=== PATIENT | female | born 1990 | race Caucasian/White ===

== ENCOUNTER 2016-06-17 14:53 | Emergency (ER) | payer BC, OTHER ==
[2016-06-17 14:58] VITALS: BP 142/79
[2016-06-17] MEDS ORDERED: Acetaminophen TAB* 325 MG PO ONE (15:40)
--- NOTE | 2016-06-17 16:31 | ED ---
Leonora Danielle Claudia, scribed for Christian Erickson MD on 06/17/16 at 1535 . Back Pain - HPI Summary HPI Summary: 25 year old female presents to the ED with left paraspinal back pain. Pt works a [employer] and was moving a pt and felt a pain to her left paraspinal back in the upper lumbar region she notes this occurred [id number] today. She notes pain 7/ 10. Pt denies any incontinence, NVD, abd pain, fever chills, numbness/tingling in LE. Pt notes aggravating factors of movement and no alleviating factors. - History of Current Complaint Chief Complaint: EDGeneral Stated Complaint: BACK INJURY Time Seen by Provider: 06/17/16 15:17 Hx Obtained From: Patient Hx Last Menstrual Period: started Dec 30 Onset/Duration: Sudden Onset Onset/Duration: Started Minutes Ago - 1400, Still Present Timing: Constant Back Pain Location: Is Discrete @ - left paraspinal upper lumbar region Pain Intensity: 7 Pain Scale Used: 0-10 Numeric Aggravating Symptom(s): Movement Associated Signs And Symptoms: Negative: Fever, Weakness, Numbness, Tingling, Bladder Incontinence, Bowel Incontinence - Allergies/Home Medications Allergies/Adverse Reactions: Allergies Allergy/AdvReac Type Severity Reaction Status Date / Time Ibuprofen AdvReac Intermediate worsens Verified 08/17/13 20:11 migraines PMH/Surg Hx/FS Hx/Imm Hx Previously Healthy: Yes Endocrine/Hematology History: Denies: Hx Diabetes Cardiovascular History: Denies: Hx Myocardial Infarction Infectious Disease History: Denies: Traveled Outside the [place] in Last 30 Days - Family History Known Family History: Positive: Cardiac Disease, Hypertension, Diabetes - Social History Occupation: Employed Full-time - [employer] [place] With Family Alcohol Use: Rare Substance Use Type: Reports: Marijuana Hx Tobacco Use: No Review of Systems Constitutional: Negative Negative: Fever, Chills Eyes: Negative ENT: Negative Cardiovascular: Negative Respiratory: Negative Gastrointestinal: Negative Negative: Abdominal Pain, Diarrhea, Nausea Genitourinary: Negative Negative: incontinence Positive: Other - back pain Skin: Negative Neurological: Negative Negative: Paresthesia, Numbness Psychological: Normal All Other Systems Reviewed And Are Negative: Yes Physical Exam Triage Information Reviewed: Yes Vital Signs On Initial Exam: Initial Vitals Temp Pulse Resp BP Pulse Ox 97.9 F 83 20 142/79 100 06/17/16 14:55 06/17/16 14:55 06/17/16 14:55 06/17/16 14:55 06/17/16 14:55 Vital Signs Reviewed: Yes Appearance: Positive: Well-Appearing. Negative: No Pain Distress - mild pain distress Skin: Positive: Warm, Skin Color Reflects Adequate Perfusion, Dry Head/Face: Positive: Normal Head/Face Inspection Eyes: Positive: EOMI, LUX ENT: Positive: Normal ENT inspection Neck: Positive: Supple, Nontender Respiratory/Lung Sounds: Positive: Clear to Auscultation, Breath Sounds Present Cardiovascular: Positive: RRR Abdomen Description: Positive: Nontender, Soft Musculoskeletal: Positive: Normal, Strength/ROM Intact, Other - left paraspinal tenderness in upper lumbar region. Patellar reflex 2+ bilaterally and strength 5 /5 LE. Neurological: Positive: Normal, Sensory/Motor Intact, Alert, Oriented to Person Place, Time Psychiatric: Positive: Affect/Mood Appropriate Diagnostics - Vital Signs Vital Signs Temp Pulse Resp BP Pulse Ox 06/17/16 14:55 97.9 F 83 20 142/79 100 - Laboratory Lab Statement: Any lab studies that have been ordered have been reviewed, and results considered in the medical decision making process. Back Pain Course/Dx - Course Course Of Treatment: NO CRITICAL CARE TIME. Assessment/Plan: RX NORCO/FLEXERIL. OUT OF WORK 06/18/16. F/U PMD. [facility]. - Diagnoses Provider Diagnoses: Low back pain Discharge - Discharge Plan Condition: Stable Disposition: HOME Prescriptions: Cyclobenzaprine TAB* [Flexeril 10 MG TAB*] 10 mg PO TID PRN #10 tab PRN Reason: Pain HYDROcodone/ACETAMIN 5-325 MG* [[place] 5-325 TAB*] 1 tab PO Q4H PRN #20 tab MDD 6 PRN Reason: Pain Patient Education Materials: Low Back Strain (ED), Acute Low Back Pain (ED), Lower Back Exercises (ED) Forms: *Work Release Referrals: Henry THOMAS,Blake Perla [Primary Care Provider] - Additional Instructions: FOLLOW UP WITH YOUR DOCTOR. RETURN TO THE EMERGENCY DEPARTMENT FOR ANY WORSENING OF YOUR CONDITION; WEAKNESS , NUMBNESS, DIFFICULTY CONTROLLING BOWEL OR BLADDER OR QUESTIONS OR CONCERNS. The documentation as recorded by the Leonora candelaria Claudia accurately reflects the service I personally performed and the decisions made by me, Christian Erickson MD.
== END 2016-06-17 15:47 | disposition home or self-care (01) ==
LOC: ED 14:53
DX: M54.5 Low back pain (principal); F12.90 Cannabis use, unspecified, uncomplicated; Z88.6 Allergy status to analgesic agent
CPT/HCPCS: 99281; A9270-GY

== ENCOUNTER 2016-10-02 11:03 | Emergency (ER) | payer OTHER ==
[2016-10-02] MEDS ORDERED: Tetan/Diph/Pertus SYR(Tdap)* 0.5 ML SYR(BOOSTRIX) use SYR IM ONE (12:05)
[2016-10-02 14:27] VITALS: BP 110/59
--- NOTE | 2016-10-02 14:39 | ED ---
- HPI Summary HPI Summary: Patient presents to ED 30 minutes s/p exposure of body fluids to the right eye. 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 Pt states she was emptying a commode that wasn't properly installed and the bucket dropped to the floor splashing urine upwards into her eyes. Pt utilized the emergency eye wash station immediately as instructed. 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 She notes to right eye itching. She denies any other symptoms. It is unknown of the patients HIV/Hep status and patient has been discharged and now is unavailable for testing. She is otherwise healthy, takes no medications and denies allergies. - History of Current Complaint Chief Complaint: EDExposureBodyFluid Stated Complaint: EXPOSURE/URINE IN RT EYE Time Seen by Provider: 10/02/16 11:32 Body Fluid Exposure: Urine Treatment NUTRITION SPECIALIST: Irrigation - Source Information HIV: Unknown Hepatitis: Unknown - Other Discussed Post-Exposure prophylaxis (PEP) for HIV: Declined Discussed PEP for Hepatitis-B: Declined Serologic Testing (HIV/HBV) Declined by Patient: Yes PMH/Surg Hx/FS Hx/Imm Hx Previously Healthy: Yes Endocrine/Hematology History: Denies: Hx Diabetes Cardiovascular History: Denies: Hx Myocardial Infarction Infectious Disease History: No Infectious Disease History: Denies: Traveled Outside the [place] in Last 30 Days - Family History Known Family History: Positive: Cardiac Disease, Hypertension, Diabetes - Social History Occupation: Employed Full-time Lives: With Family Alcohol Use: Rare Hx Substance Use: Yes Substance Use Type: Reports: Marijuana Hx Tobacco Use: No Smoking Status (MU): Never Smoked Tobacco Review of Systems Constitutional: Negative Positive: Other - right eye pruritis ENT: Negative Cardiovascular: Negative Gastrointestinal: Negative Positive: no symptoms reported, see HPI Neurological: Negative Psychological: Normal All Other Systems Reviewed And Are Negative: Yes Physical Exam Triage Information Reviewed: Yes Vital Signs On Initial Exam: Initial Vitals Temp Pulse Resp BP Pulse Ox 97.6 F 78 16 102/60 100 10/02/16 11:08 10/02/16 11:08 10/02/16 11:08 10/02/16 11:08 10/02/16 11:08 Vital Signs Reviewed: Yes Appearance: Positive: Well-Appearing, Well-Nourished Skin: Positive: Warm, Skin Color Reflects Adequate Perfusion Eyes: Positive: EOMI, LUX, Conjunctiva Clear ENT: Positive: Other - right eye itching, but without erythema Neck: Positive: Supple, No Lymphadenopathy Respiratory/Lung Sounds: Positive: Clear to Auscultation, Breath Sounds Present Cardiovascular: Positive: RRR, Pulses are Symmetrical in both Upper and Lower Extremities Musculoskeletal: Positive: Normal, Strength/ROM Intact Neurological: Positive: Sensory/Motor Intact, Alert, Oriented to Person Place, Time, Speech Normal Psychiatric: Positive: Normal Diagnostics - Vital Signs Vital Signs Temp Pulse Resp BP Pulse Ox 10/02/16 14:26 97.6 F 68 16 110/59 10/02/16 11:19 97.8 F 106 16 102/60 99 10/02/16 11:08 97.6 F 78 16 102/60 100 - Laboratory Lab Statement: Any lab studies that have been ordered have been reviewed, and results considered in the medical decision making process. Needlestick Course/Dx - Course Course Of Treatment: Patient advised against PEP d/t urine source in eye. This was advised based on source exposure follow up guidelines. Patient does not need PEP based on body fluids which was not visibly bloody (including urine), no non-intact skin exposure, no needle stick, no bites or breaks in skin. Education given. Patient requesting HIV and Hep labs. These were obtained and patient will be called for any abnormal results. Patient OK for discharge and back to work. Patient advised to take Zanidine eye drops for itching. - Diagnoses Provider Diagnoses: Employee exposure to body fluids Discharge - Discharge Plan Condition: Stable Disposition: HOME Patient Education Materials: Postexposure Prophylaxis (ED) Referrals: Henry THOMAS,Blake Perla [Primary Care Provider] - Additional Instructions: Follow up with PCP as needed Will call with any significant results.
[2016-10-02 16:14] LABS: Rapid HIV INT CONT QC Line Present
[2016-10-02 16:15] LABS: Manual Entry Verification GRE0060; Rapid HIV Kit Lot# HO17003
== END 2016-10-02 14:39 | disposition home or self-care (01) ==
LOC: ED 11:03
DX: Z77.21 Contact with and (suspected) exposure to potentially hazardous body fluids (principal)
CPT/HCPCS: 36415; 86703; 86706; 86803; 87340; 99282